=== PATIENT | female | born 1945 | race Two or more races ===

== ENCOUNTER 2017-12-12 05:50 | Day surgery (SDC) | payer OTHER | END 2017-12-12 12:00 | disposition home or self-care (01) | LOC: AMB-ENDOS 05:50 | DX: K62.4 Stenosis of anus and rectum (principal); R15.9 Full incontinence of feces ==

== ENCOUNTER 2018-01-20 05:20 | Day surgery (SDC) | payer OTHER ==
[~2018-01-20] VITALS: Ht 152.4 cm; Wt 46.3 kg
[~2018-01-20 05:20] MED LIST: AMLODIPINE BESYL5 MG PO; ATORVASTATIN CA40 MG PO; CALCIUM500 M1 PO; CLONAZEPAM1 MG PO; SYNTHROID75 MCG PO
[2018-01-21] MEDS ORDERED: RECTICARE30 GM TOP (08:31)
[2018-01-21] MEDS ORDERED: BACTRIM DS TAB1 EACH PO (08:31)
[2018-01-21] MEDS ORDERED: GABAPENTIN100 MG PO (08:31)
[2018-01-21] MEDS ORDERED: PERCOCET 5-3251 EACH PO (08:31)
== END 2018-01-21 08:00 | disposition home or self-care (01) ==
LOC: CIR.AMB 05:20 → SURG 15:45 → OB/GYN 15:45 → CIR.AMB 15:45 → O/R 15:45 → SURG 16:30 → OB/GYN 16:30 → CIR.AMB 01-21 08:00 → O/R 01-21 12:15 → OB/GYN 01-21 12:15 → SURG 01-21 12:15
DX: K62.4 Stenosis of anus and rectum (principal)

== ENCOUNTER → 2018-03-27 | Day surgery (SDC) | payer OTHER ==
[~2018-03-27] VITALS: Ht 149.9 cm; Wt 48.1 kg
[~2018-03-27] MED LIST changes: +BACTRIM DS TAB1 EACH PO; +GABAPENTIN100 MG PO; +PERCOCET 5-3251 EACH PO; +RECTICARE30 GM TOP
== END | disposition home or self-care (01) ==
LOC: ER 05:39 → CIR.AMB 10:29
DX: K62.4 Stenosis of anus and rectum (principal); K57.30 Diverticulosis of large intestine without perforation or abscess without bleeding; K59.09 Other constipation

== ENCOUNTER 2018-08-27 05:30 | Day surgery (SDC) | payer OTHER ==
[~2018-08-27 05:30] MED LIST changes: +MIRALAX17 GM PO; +[UNRECOGNIZED DRUG - OTHER] PO
[2018-08-27] MEDS ORDERED: PERCOCET 10-321 EACH PO (09:25)
[2018-08-27] MEDS ORDERED: RECTICARE30 GM TOP (09:26)
== END 2018-08-27 14:55 | disposition home or self-care (01) ==
LOC: CIR.AMB 05:30
DX: K62.4 Stenosis of anus and rectum (principal)

== ENCOUNTER 2019-01-05 21:54 | Inpatient (IN) | payer OTHER ==
[~2019-01-05] VITALS: Ht 157.5 cm; Wt 45.4 kg
[~2019-01-05 21:54] MED LIST changes: +PERCOCET 10-321 EACH PO
== END 2019-01-12 12:35 | disposition home or self-care (01) | DRG 347 ==
LOC: ER 21:54 → SURG 01-06 08:47
PROVIDERS: Surgery; ADMIT Internal Medicine
PROC: 0DBP8ZX Excision of Rectum, Via Natural or Artificial Opening Endoscopic, Diagnostic (ICD-10-PCS; 2019-01-07)
PROC: 0DBN8ZX Excision of Sigmoid Colon, Via Natural or Artificial Opening Endoscopic, Diagnostic (ICD-10-PCS; 2019-01-07)
PROC: 0DBP7ZZ Excision of Rectum, Via Natural or Artificial Opening (ICD-10-PCS; principal; 2019-01-09 07:00)
DX: K51.211 Ulcerative (chronic) proctitis with rectal bleeding (principal); K57.33 Diverticulitis of large intestine without perforation or abscess with bleeding; K62.3 Rectal prolapse; K62.4 Stenosis of anus and rectum; R15.2 Fecal urgency; E03.8 Other specified hypothyroidism; E78.2 Mixed hyperlipidemia; K62.89 Other specified diseases of anus and rectum; I10 Essential (primary) hypertension

== ENCOUNTER 2019-04-13 09:03 | Emergency (ER) | payer OTHER ==
[~2019-04-13] VITALS: Ht 147.3 cm; Wt 48.5 kg
== END 2019-04-13 13:34 | disposition home or self-care (01) ==
LOC: ER 09:03
DX: K62.5 Hemorrhage of anus and rectum (principal)

== ENCOUNTER 2019-06-19 14:30 | Inpatient (IN) | payer OTHER ==
[~2019-06-19] VITALS: Ht 147.3 cm; Wt 40.8 kg
[2019-06-29] MEDS ORDERED: DICLOFENAC SOD100 GM (08:25)
[2019-07-02] MEDS ORDERED: CELEBREX100 MG PO (12:14)
[2019-07-02] MEDS ORDERED: PERCOCET 5-3251 EACH PO (12:15)
== END 2019-07-02 13:17 | disposition home or self-care (01) | DRG 348 ==
LOC: SURH 06-29 06:32 → O/R 06-29 06:32 → SURG 06-29 08:45 → SURH 06-29 17:29
PROVIDERS: ADMIT Surgery
PROC: 0DQR0ZZ Repair Anal Sphincter, Open Approach (ICD-10-PCS; 2019-06-29)
PROC: 3E0T3BZ Introduction of Anesthetic Agent into Peripheral Nerves and Plexi, Percutaneous Approach (ICD-10-PCS; 2019-06-29)
PROC: 0DBP7ZZ Excision of Rectum, Via Natural or Artificial Opening (ICD-10-PCS; principal; 2019-06-29 11:30)
PROC: BQ47ZZZ Ultrasonography of Right Knee (ICD-10-PCS; 2019-07-01)
DX: K62.3 Rectal prolapse (principal); K62.5 Hemorrhage of anus and rectum; K57.32 Diverticulitis of large intestine without perforation or abscess without bleeding; K64.8 Other hemorrhoids; K62.89 Other specified diseases of anus and rectum; G89.18 Other acute postprocedural pain; M25.561 Pain in right knee; M71.22 Synovial cyst of popliteal space [Baker], left knee; M25.461 Effusion, right knee

== ENCOUNTER 2019-10-05 08:07 | Emergency (ER) | payer OTHER ==
[~2019-10-05] VITALS: Ht 172.7 cm; Wt 45.4 kg
[~2019-10-05 08:07] MED LIST changes: +CELEBREX100 MG PO; +DICLOFENAC SOD100 GM
== END 2019-10-05 14:38 | disposition home or self-care (01) ==
LOC: ER 08:07
DX: K62.5 Hemorrhage of anus and rectum (principal)

== ENCOUNTER 2019-11-25 06:00 | Day surgery (SDC) | payer OTHER ==
[~2019-11-25 06:00] MED LIST changes: +AVAPRO150 MG PO; +CENTRU PO; +LEVOXYL100 MCG PO; +TRAMAD PO; +VITAMIN D PO
[2019-11-25] MEDS ORDERED: ULTRAM50 MG PO (09:25)
[2019-11-25] MEDS ORDERED: RELAFEN DS1000 MG PO (09:29)
[2019-11-25] MEDS ORDERED: NABUMETONE500 MG PO (11:45)
== END 2019-11-25 13:55 | disposition home or self-care (01) ==
LOC: CIR.AMB 06:00
DX: K62.3 Rectal prolapse (principal)

== ENCOUNTER 2021-12-27 06:24 | Inpatient (IN) | payer OTHER ==
[~2021-12-27 06:24] MED LIST changes: +ANTI-GAS166 MG PO; +CANDESARTAN CILE8 M1; +CENTRUM ADULTS1 EACH; +MOBIC7.5 MG PO; +NABUMETONE500 MG PO; +OMEPRAZOLE40 MG; +RELAFEN DS1000 MG PO; +RESTASIS1 EACH; +ULTRAM50 MG PO; +VITAMIN D310 MC4 PO
[2021-12-30] MEDS ORDERED: ULTRAM50 MG PO (12:28)
== END 2021-12-30 13:43 | disposition home or self-care (01) | DRG 349 ==
LOC: CIR.AMB 06:24 → SURG 22:34 → SURH 12-29 16:07
PROVIDERS: Surgery; ADMIT Surgery; ATTEND Surgery
PROC: 3E0F7SF Introduction of Other Gas into Respiratory Tract, Via Natural or Artificial Opening (ICD-10-PCS; 2021-12-27)
PROC: 0DBQ0ZZ Excision of Anus, Open Approach (ICD-10-PCS; principal; 2021-12-27 09:45)
PROC: 0WUF4JZ Supplement Abdominal Wall with Synthetic Substitute, Percutaneous Endoscopic Approach (ICD-10-PCS; 2021-12-27 09:45)
DX: K43.0 Incisional hernia with obstruction, without gangrene (principal); K43.5 Parastomal hernia without obstruction or gangrene; K62.3 Rectal prolapse; R15.9 Full incontinence of feces; K62.89 Other specified diseases of anus and rectum

== ENCOUNTER 2022-12-26 11:39 | Inpatient (IN) | payer OTHER ==
[~2022-12-26] VITALS: Ht 149.9 cm; Wt 45.4 kg
[2023-01-02] MEDS ORDERED: DICLOFENAC SOD100 GM (13:21)
[2023-01-02] MEDS ORDERED: GABAPENTIN100 M2 (13:21)
[2023-01-02] MEDS ORDERED: FLUOROMETHOLONE5 ML (13:21)
[2023-01-08] MEDS ORDERED: INTESTINEX680 M1 PO (08:02)
[2023-01-08] MEDS ORDERED: TRAMADOL HCL50 MG PO (08:03)
[2023-01-08] MEDS ORDERED: MIRALAX510 GM PO (08:03)
== END 2023-01-08 12:45 | disposition home or self-care (01) | DRG 355 ==
LOC: O/R 01-02 07:20 → SURH 01-02 07:20
PROVIDERS: ADMIT Surgery; ATTEND Surgery
PROC: 0USG4ZZ Reposition Vagina, Percutaneous Endoscopic Approach (ICD-10-PCS; 2023-01-02)
PROC: 0WUF4JZ Supplement Abdominal Wall with Synthetic Substitute, Percutaneous Endoscopic Approach (ICD-10-PCS; principal; 2023-01-02 09:45)
DX: K43.5 Parastomal hernia without obstruction or gangrene (principal); K45.8 Other specified abdominal hernia without obstruction or gangrene; I10 Essential (primary) hypertension

== ENCOUNTER 2023-03-06 16:00 | Inpatient (IN) | payer OTHER ==
[~2023-03-06] VITALS: Ht 134.6 cm; Wt 45.4 kg
[~2023-03-06 16:00] MED LIST changes: +FLUOROMETHOLONE5 ML; +GABAPENTIN100 M2; +INTESTINEX680 M1 PO; +MIRALAX510 GM PO; +TRAMADOL HCL50 MG PO
[2023-03-07] MEDS ORDERED: NORVASC2.5 MG (08:11)
[2023-03-27] MEDS ORDERED: MIRALAX17 GM PO (11:55)
[2023-03-27] MEDS ORDERED: LEVSIN/SL0.125 MG SL (11:55)
[2023-03-27] MEDS ORDERED: INTESTINEX680 M1 PO (11:56)
[2023-03-27] MEDS ORDERED: TRAM1TAB98 PO (11:58)
== END 2023-03-27 14:07 | disposition home or self-care (01) | DRG 389 ==
LOC: SURH 16:00
PROVIDERS: ADMIT Surgery; ATTEND Surgery
PROC: BW21YZZ Computerized Tomography (CT Scan) of Abdomen and Pelvis using Other Contrast (ICD-10-PCS; principal; 2023-03-06)
PROC: 02HV33Z Insertion of Infusion Device into Superior Vena Cava, Percutaneous Approach (ICD-10-PCS; 2023-03-07)
PROC: B54BZZZ Ultrasonography of Right Lower Extremity Veins (ICD-10-PCS; 2023-03-24)
PROC: BW21YZZ Computerized Tomography (CT Scan) of Abdomen and Pelvis using Other Contrast (ICD-10-PCS; 2023-03-25)
DX: K56.699 Other intestinal obstruction unspecified as to partial versus complete obstruction (principal); E87.1 Hypo-osmolality and hyponatremia; D64.9 Anemia, unspecified; E87.6 Hypokalemia; E86.0 Dehydration; E87.8 Other disorders of electrolyte and fluid balance, not elsewhere classified; E03.9 Hypothyroidism, unspecified; I10 Essential (primary) hypertension